=== PATIENT | female | born 1955 | race Caucasian/White ===

== ENCOUNTER 2017-06-30 23:10 | Inpatient (IN) | payer OTHER ==
[2017-07-01] MEDS ORDERED: ACETAMINOPHEN 325 MG TAB PO (01:00)
[2017-07-01] MEDS: CEFTRIAXONE 1 GM/50 ML (PMX) 50 ML IVPB (01:25)
[2017-07-01] MEDS: LEVOFLOXACIN 500 MG TAB PO (05:47)
[2017-07-01 06:06] LABS: ADD MAN DIFF? NO
[2017-07-01 06:09] LABS: WHITE BLOOD COUNT 10.2 10^3/ul (4.8-10.8)
[2017-07-01 06:09] LABS: BASOPHILS % 0.1 % (0.0-2.0); HEMATOCRIT 38.4 % (37.0-47.0); LYMPHOCYTES # 0.9 10^3/ul (0.8-2.9); LYMPHOCYTES % 8.7 % (15.0-51.0); MEAN CORPUSCULAR HEMOGLOBIN 29.8 pg (29.0-33.0); MEAN CORPUSCULAR HGB CONC 33.9 g/dl (32.0-37.0); MEAN CORPUSCULAR VOLUME 88.1 fl (82.0-101.0); MEAN PLATELET VOLUME 10.7 fl (7.4-10.4); MONOCYTE # 0.4 10^3/ul (0.3-0.9); MONOCYTES % 4.1 % (0.0-11.0); NEUTROPHIL # 8.9 10^3/ul (1.6-7.5); NEUTROPHILS % 86.6 % (39.0-77.0); PLATELET COUNT 201 10^3/UL (140-415); RED BLOOD COUNT 4.36 10^6/ul (4.20-5.40); RED CELL DISTRIBUTION WIDTH 12.6 % (11.5-14.5)
[2017-07-01 07:15] LABS: ALANINE AMINOTRANSFERASE 66 IU/L (13-69); ALBUMIN 4.4 g/dl (3.3-4.9); ALBUMIN/GLOBULIN RATIO 1.29; ALKALINE PHOSPHATASE 73 IU/L (42-121); ANION GAP 19 (8-16); ASPARTATE AMINO TRANSFERASE 50 IU/L (15-46); BILIRUBIN,INDIRECT 0.1 mg/dl (0-1.1); BILIRUBIN,TOTAL 0.1 mg/dl (0.2-1.3); BLOOD UREA NITROGEN 17 mg/dl (7-20); CALCIUM 9.2 mg/dl (8.4-10.2); CARBON DIOXIDE 23 mmol/L (21-31); CHLORIDE 105 mmol/L (97-110); CHOL/HDL RATIO 3.3 RATIO; CHOLESTEROL 149 mg/dl (100-200); CREATININE 0.83 mg/dl (0.44-1.00); GLUCOSE 191 mg/dl (70-220); HDL CHOLESTEROL 44 mg/dl (35-98); LDL CHOLESTEROL,CALCULATED 93 mg/dl; POTASSIUM 3.9 mmol/L (3.5-5.1); SODIUM 143 mmol/L (135-144); TOTAL PROTEIN 7.8 g/dl (6.1-8.1); TRIGLYCERIDES 60 mg/dl (0-149)
[2017-07-01 07:19] LABS: HEMOGLOBIN A1C 6.2 % (0-5.9)
[2017-07-01] MEDS: OSELTAMIVIR 75 MG CAP PO ×2 (08:46→20:34)
[2017-07-01] MEDS: ENOXAPARIN 40 MG/0.4 ML SYG SC (08:48)
[2017-07-01] MEDS ORDERED: INSULIN ASPART [NOVOLOG] 3 ML PEN SC (17:00)
[2017-07-01] MEDS ORDERED: GLUCOSE GEL 15 GRAM TUBE PO ×2 (17:30)
[2017-07-01] MEDS ORDERED: GLUCAGON 1 MG INJ IM (17:30)
[2017-07-01] MEDS ORDERED: GLUCOSE GEL 15 GRAM TUBE BUCCAL (17:30)
[2017-07-01] MEDS ORDERED: DEXTROSE 50% 50 ML SYRINGE IV ×2 (17:30)
[2017-07-01] MEDS: INSULIN ASPART [NOVOLOG] 3 ML PEN SC ×2 (17:46→20:33)
[2017-07-01 18:33] LABS: CHOL/HDL RATIO 3.5 RATIO; HDL CHOLESTEROL 44 mg/dl (35-98); LDL CHOLESTEROL,CALCULATED 92 mg/dl; TRIGLYCERIDES 99 mg/dl (0-149)
[2017-07-01 18:33] LABS: CHOLESTEROL 156 mg/dl (100-200)
[2017-07-01] MEDS: ALBUTEROL 0.083% (NEB) 2.5 MG/3 ML AMP HHN (19:47)
[2017-07-02] MEDS: CEFTRIAXONE 1 GM/50 ML (PMX) 50 ML IVPB (00:47)
[2017-07-02] MEDS: GUAIFENESIN/DM 5ML CUP PO (00:48)
[2017-07-02] MEDS: ACCU-CHEK XX (01:19)
[2017-07-02] MEDS: ALBUTEROL 0.083% (NEB) 2.5 MG/3 ML AMP HHN ×4 (01:29→20:07)
[2017-07-02] MEDS: LEVOFLOXACIN 500 MG TAB PO (05:54)
[2017-07-02 06:12] LABS: ADD MAN DIFF? NO
[2017-07-02 06:21] LABS: WHITE BLOOD COUNT 12.2 10^3/ul (4.8-10.8)
[2017-07-02 06:21] LABS: BASOPHILS % 0.2 % (0.0-2.0); HEMATOCRIT 38.6 % (37.0-47.0); HEMOGLOBIN 12.9 g/dl (12.0-16.0); LYMPHOCYTES # 2.6 10^3/ul (0.8-2.9); LYMPHOCYTES % 21.6 % (15.0-51.0); MEAN CORPUSCULAR HEMOGLOBIN 29.7 pg (29.0-33.0); MEAN CORPUSCULAR HGB CONC 33.4 g/dl (32.0-37.0); MEAN CORPUSCULAR VOLUME 88.7 fl (82.0-101.0); MEAN PLATELET VOLUME 10.7 fl (7.4-10.4); MONOCYTE # 0.7 10^3/ul (0.3-0.9); MONOCYTES % 5.6 % (0.0-11.0); NEUTROPHIL # 8.8 10^3/ul (1.6-7.5); NEUTROPHILS % 72.2 % (39.0-77.0); PLATELET COUNT 216 10^3/UL (140-415); RED BLOOD COUNT 4.35 10^6/ul (4.20-5.40); RED CELL DISTRIBUTION WIDTH 12.8 % (11.5-14.5)
[2017-07-02 06:29] LABS: HEMOGLOBIN A1C 6.2 % (0-5.9)
[2017-07-02 06:52] LABS: ANION GAP 18 (8-16); BLOOD UREA NITROGEN 24 mg/dl (7-20); CALCIUM 8.8 mg/dl (8.4-10.2); CARBON DIOXIDE 26 mmol/L (21-31); CHLORIDE 104 mmol/L (97-110); CREATININE 0.89 mg/dl (0.44-1.00); GLUCOSE 109 mg/dl (70-220); POTASSIUM 4.1 mmol/L (3.5-5.1); SODIUM 144 mmol/L (135-144)
[2017-07-02] MEDS: INSULIN ASPART [NOVOLOG] 3 ML PEN SC ×4 (08:00→21:00)
[2017-07-02] MEDS: ENOXAPARIN 40 MG/0.4 ML SYG SC (08:26)
[2017-07-02] MEDS: OSELTAMIVIR 75 MG CAP PO ×2 (08:26→21:08)
[2017-07-03] MEDS: ALBUTEROL 0.083% (NEB) 2.5 MG/3 ML AMP HHN ×4 (01:32→19:53)
[2017-07-03] MEDS: CEFTRIAXONE 1 GM/50 ML (PMX) 50 ML IVPB (01:50)
[2017-07-03] MEDS: ACCU-CHEK XX (02:00)
[2017-07-03] MEDS: LEVOFLOXACIN 500 MG TAB PO (05:55)
[2017-07-03 05:56] LABS: ADD MAN DIFF? NO
[2017-07-03 05:58] LABS: BASOPHILS % 0.2 % (0.0-2.0); EOSINOPHILS % 0.2 % (0.0-7.0); HEMOGLOBIN 12.8 g/dl (12.0-16.0); LYMPHOCYTES # 2.8 10^3/ul (0.8-2.9); LYMPHOCYTES % 33.2 % (15.0-51.0); MEAN CORPUSCULAR HEMOGLOBIN 29.9 pg (29.0-33.0); MEAN CORPUSCULAR HGB CONC 33.7 g/dl (32.0-37.0); MEAN CORPUSCULAR VOLUME 88.8 fl (82.0-101.0); MEAN PLATELET VOLUME 10.2 fl (7.4-10.4); MONOCYTE # 0.5 10^3/ul (0.3-0.9); MONOCYTES % 5.9 % (0.0-11.0); NEUTROPHIL # 5.1 10^3/ul (1.6-7.5); NEUTROPHILS % 60.3 % (39.0-77.0); PLATELET COUNT 217 10^3/UL (140-415); RED BLOOD COUNT 4.28 10^6/ul (4.20-5.40); RED CELL DISTRIBUTION WIDTH 13.1 % (11.5-14.5)
[2017-07-03 05:58] LABS: WHITE BLOOD COUNT 8.5 10^3/ul (4.8-10.8)
[2017-07-03 06:28] LABS: ANION GAP 16 (8-16); BLOOD UREA NITROGEN 18 mg/dl (7-20); CALCIUM 9.2 mg/dl (8.4-10.2); CARBON DIOXIDE 28 mmol/L (21-31); CHLORIDE 104 mmol/L (97-110); CREATININE 0.88 mg/dl (0.44-1.00); GLUCOSE 108 mg/dl (70-220); PHOSPHORUS 4.7 mg/dl (2.5-4.9); POTASSIUM 4.3 mmol/L (3.5-5.1); SODIUM 144 mmol/L (135-144)
[2017-07-03] MEDS: INSULIN ASPART [NOVOLOG] 3 ML PEN SC ×4 (07:59→20:51)
[2017-07-03] MEDS: OSELTAMIVIR 75 MG CAP PO ×2 (08:53→20:52)
[2017-07-03] MEDS: ENOXAPARIN 40 MG/0.4 ML SYG SC (08:54)
[2017-07-03] MEDS ORDERED: VANCOMYCIN IV PER PHARMACY XX (14:30)
[2017-07-03] MEDS: VANCOMYCIN 1.75 GM in SOD CHLORIDE 0.9% 500 ML IVPB (17:21)
[2017-07-04] MEDS: ACCU-CHEK XX (01:34)
[2017-07-04] MEDS: ALBUTEROL 0.083% (NEB) 2.5 MG/3 ML AMP HHN ×3 (01:42→13:08)
[2017-07-04] MEDS: VANCOMYCIN 750 MG in DEXTROSE 5% 150 ML IVPB (04:52)
[2017-07-04] MEDS: LEVOFLOXACIN 500 MG TAB PO (05:25)
[2017-07-04 06:38] LABS: ADD MAN DIFF? NO
[2017-07-04 06:40] LABS: BASOPHILS % 0.3 % (0.0-2.0); EOSINOPHILS # 0.1 10^3/ul (0.0-0.5); EOSINOPHILS % 0.7 % (0.0-7.0); HEMATOCRIT 40.2 % (37.0-47.0); HEMOGLOBIN 13.5 g/dl (12.0-16.0); LYMPHOCYTES # 2.9 10^3/ul (0.8-2.9); LYMPHOCYTES % 40.3 % (15.0-51.0); MEAN CORPUSCULAR HEMOGLOBIN 29.9 pg (29.0-33.0); MEAN CORPUSCULAR HGB CONC 33.6 g/dl (32.0-37.0); MEAN CORPUSCULAR VOLUME 88.9 fl (82.0-101.0); MEAN PLATELET VOLUME 10.3 fl (7.4-10.4); MONOCYTE # 0.5 10^3/ul (0.3-0.9); MONOCYTES % 7.3 % (0.0-11.0); NEUTROPHIL # 3.6 10^3/ul (1.6-7.5); NEUTROPHILS % 50.7 % (39.0-77.0); PLATELET COUNT 234 10^3/UL (140-415); RED BLOOD COUNT 4.52 10^6/ul (4.20-5.40)
[2017-07-04 06:40] LABS: WHITE BLOOD COUNT 7.1 10^3/ul (4.8-10.8)
[2017-07-04] MEDS ORDERED: PETROLATUM 5 GM OINT TOP (07:00)
[2017-07-04 07:09] LABS: ANION GAP 19 (8-16); BLOOD UREA NITROGEN 18 mg/dl (7-20); CALCIUM 9.5 mg/dl (8.4-10.2); CARBON DIOXIDE 24 mmol/L (21-31); CHLORIDE 102 mmol/L (97-110); CREATININE 0.85 mg/dl (0.44-1.00); GLUCOSE 111 mg/dl (70-220); POTASSIUM 4.1 mmol/L (3.5-5.1); SODIUM 141 mmol/L (135-144)
[2017-07-04] MEDS: INSULIN ASPART [NOVOLOG] 3 ML PEN SC ×2 (08:00→12:00)
[2017-07-04] MEDS: OSELTAMIVIR 75 MG CAP PO (08:25)
[2017-07-04] MEDS: ENOXAPARIN 40 MG/0.4 ML SYG SC (08:26)
== END 2017-07-04 17:35 | disposition home or self-care (01) | DRG 202 ==
LOC: PP2 23:10
PROVIDERS: Internal Medicine
DX: J20.8 Acute bronchitis due to other specified organisms (principal); J18.9 Pneumonia, unspecified organism; I10 Essential (primary) hypertension; G47.30 Sleep apnea, unspecified; E11.9 Type 2 diabetes mellitus without complications; E66.9 Obesity, unspecified; R73.03 Prediabetes; Z68.35 Body mass index [BMI] 35.0-35.9, adult
CPT/HCPCS: 71045; 71046; 80048; 80053; 80061; 82962; 83036; 83735; 84100; 85025; 87070; 87275; 87276; 87279; 87280; 87400; 94640; 94664